=== PATIENT | female | born 1965 | race Two or more races ===

== ENCOUNTER 2024-01-22 13:30 | Emergency (ER) | payer OTHER | END 2024-01-22 14:34 | disposition home or self-care (01) | LOC: ERS 13:30 | DX: S00.83XA Contusion of other part of head, initial encounter (principal); S00.211A Abrasion of right eyelid and periocular area, initial encounter; V89.2XXA Person injured in unspecified motor-vehicle accident, traffic, initial encounter | CPT/HCPCS: 70486 ==